=== PATIENT | female | born 1960 | race Caucasian/White ===

== ENCOUNTER → 2018-10-19 | Outpatient (CLI) | payer OTHER ==
--- NOTE | 2018-10-19 16:06 | Diagnostic Imaging Report ---
INDICATION: Pain in the right knee for two weeks. TIME OF EXAM: 3:54 p.m. FINDINGS: Three views of the right knee were obtained. Alignment is normal. Joint spaces are well maintained. Articular surfaces are smooth. No fracture, dislocation, or effusion is seen. IMPRESSION: No acute bony abnormality is detected. Dictated by: Dictated on workstation # [id number]
--- NOTE | 2018-10-19 16:07 | Diagnostic Imaging Report ---
INDICATION: Bilateral hand pain. TIME OF EXAMINATION: 3:56 PM. TECHNIQUE: Multiple views of the bilateral hands were obtained. FINDINGS: The carpus and metacarpals appear intact. The MCP joints are intact. There are mild interphalangeal joint degenerative changes bilaterally. No osseous erosive changes are seen. There are no fractures. The soft tissues are unremarkable. IMPRESSION: Mild degenerative changes but no acute bony abnormality is detected. Dictated by: Dictated on workstation # [id number]
== END ==
LOC: RAD FS 15:47
PROVIDERS: ATTEND Family Medicine
DX: M19.041 Primary osteoarthritis, right hand (principal); M19.042 Primary osteoarthritis, left hand; M25.561 Pain in right knee
CPT/HCPCS: 73562

== ENCOUNTER 2019-06-17 15:43 | Emergency (ER) | payer BC, OTHER ==
[~2019-06-17] VITALS: Ht 172.7 cm; Wt 82.9 kg
--- NOTE | 2019-06-17 15:54 | ED Chest Pain ---
General Stated Complaint: CHEST PAIN Source: patient, EMS Exam Limitations: no limitations (CALOS CAIN DO) History of Present Illness Date Seen by Provider: Jun 17, 2019 Time Seen by Provider: 15:45 Initial Comments The patient is a pleasant 59-year-old female who presents via EMS for evaluation of chest pain or shortness of breath. She states that she has been having some on and off pain over the last 1-2 days which has been in the substernal region radiating to the right side of her neck and both shoulders. She had a heart attack about a year ago and had a cardiac stent placed. This was performed in [place]. She states that her PCP is Dr. Powell. She denies nausea or vomiting, diaphoresis, productive cough, hemoptysis, back pain, abdominal pain, fevers or chills, palpitations, or syncope. She is alert and oriented 4, calm, and appears to be in no distress. She took a baby aspirin this morning as she always does and was given additional aspirin at the urgent care where she went before EMS was called. She is pain-free upon arrival. Timing/Duration: 1-2 days Severity/Quality: moderate Location: substernal Radiation: neck (right), shoulders (both) Activities at Onset: none Prior CP/Workup: heart attack (with stent) ASA po FIRE EATER: Yes NTG SL FIRE EATER: No Associated Symptoms: dizziness (CALOS CAIN DO) Allergies and Home Medications Allergies Coded Allergies: latex (Verified Allergy, Unknown, 06/17/19) Home Medications Meclizine HCl 25 Mg Tablet, 25 MG PO Q8H PRN for DIZZINESS Prescribed by: CHRISTELLE AUGUSTIN on 06/17/19 2017 Patient Home Medication List Home Medication List Reviewed: Yes (CALOS CAIN DO) Review of Systems Review of Systems Constitutional: dizziness EENTM: No Symptoms Reported Respiratory: Shortness of Air Cardiovascular: Chest Pain Gastrointestinal: No Symptoms Reported Genitourinary: No Symptoms Reported Musculoskeletal: no symptoms reported Skin: no symptoms reported Psychiatric/Neurological: No Symptoms Reported Endocrine: No Symptoms Reported Hematologic/Lymphatic: No Symptoms Reported (CALOS CAIN DO) All Other Systems Reviewed Negative Unless Noted: Yes (CALOS CAIN DO) Past Viximxa-Sqdwcn-Nuhvim Hx Past Med/Social Hx: Reviewed Nursing Past Med/Soc Hx (CALOS CAIN DO) Physical Exam Vital Signs Vital Signs - First Documented (CHRISTELLE AUGUSTIN MD) Vital Signs Capillary Refill : (CALOS CAIN DO) Height, Weight, BMI Height: '" Weight: lbs. oz. kg; BMI Method: General Appearance: No Apparent Distress, WD/WN HEENT: PERRL/EOMI, TMs Normal Neck: Full Range of Motion, Normal Inspection, Non Tender, Supple Respiratory: Chest Non Tender, Lungs Clear, Normal Breath Sounds, No Accessory Muscle Use, No Respiratory Distress Cardiovascular: Regular Rate, Rhythm, No Edema, No Murmur, Normal Peripheral Pulses Gastrointestinal: Normal Bowel Sounds, Non Tender, Soft Extremity: Normal Capillary Refill, Non Tender, No Calf Tenderness Neurologic/Psychiatric: Alert, Oriented x3, No Motor/Sensory Deficits, Normal Mood/Affect Skin: Normal Color, Warm/Dry (CALOS CAIN DO) Progress/Results/Core Measures Results/Orders Lab Results Laboratory Tests Test 06/17/19 15:47 06/17/19 18:50 Range/Units White Blood Count 7.5 4.3-11.0 10^3/uL Red Blood Count 4.53 4.35-5.85 10^6/uL Hemoglobin 14.5 11.5-16.0 G/DL Hematocrit 42 35-52 % Mean Corpuscular Volume 92 80-99 FL Mean Corpuscular Hemoglobin 32 25-34 PG Mean Corpuscular Hemoglobin Concent 35 32-36 G/DL Red Cell Distribution Width 13.6 10.0-14.5 % Platelet Count 205 130-400 10^3/uL Mean Platelet Volume 11.6 H 7.4-10.4 FL Neutrophils (%) (Auto) 53 42-75 % Lymphocytes (%) (Auto) 38 12-44 % Monocytes (%) (Auto) 5 0-12 % Eosinophils (%) (Auto) 3 0-10 % Basophils (%) (Auto) 1 0-10 % Neutrophils # (Auto) 4.0 1.8-7.8 X 10^3 Lymphocytes # (Auto) 2.8 1.0-4.0 X 10^3 Monocytes # (Auto) 0.4 0.0-1.0 X 10^3 Eosinophils # (Auto) 0.2 0.0-0.3 10^3/uL Basophils # (Auto) 0.1 0.0-0.1 10^3/uL Prothrombin Time 13.3 12.2-14.7 SEC INR Comment 1.0 0.8-1.4 Activated Partial Thromboplast Time 28 24-35 SEC Sodium Level 143 135-145 MMOL/L Potassium Level 3.8 3.6-5.0 MMOL/L Chloride Level 107 98-107 MMOL/L Carbon Dioxide Level 23 21-32 MMOL/L Anion Gap 13 5-14 MMOL/L Blood Urea Nitrogen 12 7-18 MG/DL Creatinine 0.64 0.60-1.30 MG/DL Estimat Glomerular Filtration Rate > 60 BUN/Creatinine Ratio 19 Glucose Level 123 H 70-105 MG/DL Calcium Level 9.5 8.5-10.1 MG/DL Corrected Calcium 9.3 8.5-10.1 MG/DL Total Bilirubin 0.4 0.1-1.0 MG/DL Aspartate Amino Transf (AST/SGOT) 17 5-34 U/L Alanine Aminotransferase (ALT/SGPT) 23 0-55 U/L Alkaline Phosphatase 104 40-136 U/L Troponin I < 0.30 < 0.30 <0.30 NG/ML Pro-B-Type Natriuretic Peptide 60.8 <75.0 PG/ML Total Protein 7.0 6.4-8.2 GM/DL Albumin 4.2 3.2-4.5 GM/DL Lipase 22 8-78 U/L (CHRISTELLE AUGUSTIN MD) My Orders Orders - CHRISTELLE AUGUSTIN MD Meclizine Tablet (Antivert Tablet) (06/17/19 20:13) (CHRISTELLE AUGUSTIN MD) Medications Given in ED Current Medications Medications Dose Ordered Sig/Anh Route Start Time Stop Time Status Last Admin Dose Admin Iohexol 125 ml ONCE ONCE IV 06/17/19 16:45 06/17/19 16:46 DC 06/17/19 17:06 125 ML Sodium Chloride 10 ml NEEDED PRN IV 06/17/19 16:45 06/17/19 20:24 DC 06/17/19 17:06 10 ML Sodium Chloride 100 ml ONCE ONCE IV 06/17/19 16:45 06/17/19 16:46 DC 06/17/19 17:06 80 ML (CHRISTELLE AUGUSTIN MD) Vital Signs/I&O 06/17/19 06/17/1920 15:43 15:43 20:22 Temp 36.7 Pulse 62 63 Resp 20 16 B/P (MAP) 141/90 (107) 131/63 Pulse Ox 97 94 O2 Delivery Room Air Room Air Room Air (CHRISTELLE AUGUSTIN MD) Progress Progress Note : Progress Note @1800 - Pt care transferred from Dr. Cain to Dr. Augustin at this time. Awaiting second troponin. (CALOS CAIN DO) Progress Note #1: Progress Note I assumed care of the patient from Dr. Cain at shift change. Pt had normal tests so far and negative cardiac enzymes, negative CTA chest, and no acute finding to explain her dizziness and intermittent chest pain symptoms. She has had an upper respiratory infection with cough and cold symptoms. She has dizziness still but feels it is better since being here in the ED. Waiting on repeat troponin which is due to be drawn at 1845. Progress Note #2: Progress Note Repeat troponin is still <0.3. Will try Meclizine for her dizziness and have her follow up with clinic. No acute signs of WI, Pulmonary embolism or pneumonia, heart failure or mass. Counseled pt that the symptoms may be due to her URI but if she has continued symptoms and the meclizine is not helping then check with clinic for further concerns. (CHRISTELLE AUGUSTIN MD) Initial ECG Impression Date: Jun 17, 2019 Initial ECG Impression Time: 15:51 Comment @1551 - Normal sinus rhythm, rate of 64, and normal axis, no acute ischemic findings noted, no STEMI, reviewed and interpreted by myself (CALOS CAIN DO) Diagnostic Imaging Comments [facility], [place] NAME: ABBIE BUTTS [facility] REC#: [id number] PT STATUS: REG ER : 1960 PHYSICIAN: CALOS CAIN DO ADMIT DATE: 06/17/19/ER FS Draft Date of Exam:06/17/19 CHEST 1 VIEW AP/PA ONLY INDICATION: Chest pain. TECHNIQUE: Frontal chest obtained at 3:54 p.m. FINDINGS: Heart and mediastinal silhouette are normal in appearance. The lungs are clear. There is no pneumothorax or pleural fluid. IMPRESSION: Negative chest. Dictated on workstation # [id number] Dict: 06/17/19 1631 Trans: 06/17/19 1633 AS6 [id number] Interpreted by: ALEXANDRA BOYER MD Electronically signed by: (CALOS CAIN DO) Diagonstic Imaging: CT Plain Films/CT/US/NM/MRI: chest Comments NAME: ABBIE BUTTS [facility] REC#: [id number] PT STATUS: REG ER : 1960 PHYSICIAN: CALOS CAIN DO ADMIT DATE: 06/17/19/ER FS Draft Date of Exam:06/17/19 CT ANGIO CHEST W PROCEDURE: CT angiography of the chest with contrast. TECHNIQUE: Multiple contiguous axial images were obtained through the chest after uneventful bolus administration of intravenous contrast. 3D reconstructed CTA MIP acquisitions were also performed. Auto Exposure Controls were utilized during the CT exam to meet ALARA standards for radiation dose reduction. INDICATION: Intermittent sharp stabbing chest pain and shortness of breath. Symptoms have been present over the past week along with cough and shortness of breath. COMPARISON: None. FINDINGS: Pulmonary arteries demonstrate no significant filling defect to suggest pulmonary embolism. The heart size is unremarkable. Thoracic aorta normal in contour. Thyroid gland is enlarged. There is prominent mediastinal lymph nodes, AP window. Large lymph node at 18 x 9 mm. Emphysematous changes about the lung calero. No consolidating infiltrate. Likely areas of scarring about both lung bases. Calcified granuloma in the left upper lobe. No significant pleural effusion. Stomach is mildly distended with retained gastric contents. There is partial visualization of low-density foci at the margins of the right lobe of the liver posteriorly. While nonspecific, could be reflective of cysts even perhaps off the kidney but cannot be defined. Slight thickening of the left adrenal gland. Mildly advanced degenerative changes of the thoracic spine. IMPRESSION: 1. No CTA evidence for pulmonary embolism or otherwise acute abnormality of the chest. 2. Borderline prominent mediastinal lymph nodes. Clinical correlation is recommended. Consideration for follow-up imaging evaluation would be recommended. 3. Suggested thyromegaly. Dictated on workstation # [id number] Dict: 06/17/19 1727 Trans: 06/17/19 1739 AS6 [id number] Interpreted by: JOE SANTORO DO Electronically signed by: (CHRISTELLE AUGUSTIN MD) Departure Impression Primary Impression: Chest pain Qualified Codes: R07.9 - Chest pain, unspecified Additional Impressions: Dizziness Upper respiratory infection with cough and congestion Disposition: HOME, SELF-CARE Condition: Stable Departure-Patient Inst. Decision time for Depature: 20:15 (CHRISTELLE AUGUSTIN MD) Referrals: RATNA POWELL MD (PCP/Family) Primary Care Physician Patient Instructions: Chest Pain That Is Not Caused by the Heart (DC), Vertigo (a Type of Dizziness) (DC), Viral Upper Respiratory Infection, Adult (DC) Add. Discharge Instructions: Stay well hydrated and get plenty of rest. Try the meclizine for dizziness Check back with clinic for continued concerns and symptoms. Scripts Meclizine HCl (Meclizine HCl) 25 Mg Tablet 25 MG PO Q8H PRN for DIZZINESS for 7 Days, #21 TAB 0 Refills Prov: CHRISTELLE AUGUSTIN MD 06/17/19 CALOS CAIN DO Jun 17, 2019 15:54 CHRISTELLE AUGUSTIN MD Jun 17, 2019 20:17
[2019-06-17 16:18] LABS: BASOPHILS # (AUTO) 0.1 10^3/uL (0.0-0.1); BASOPHILS % (AUTO) 1 % (0-10); EOSINOPHILS # (AUTO) 0.2 10^3/uL (0.0-0.3); EOSINOPHILS % (AUTO) 3 % (0-10); HEMATOCRIT 42 % (35-52); HEMOGLOBIN 14.5 G/DL (11.5-16.0); LYMPHOCYTES # (AUTO) 2.8 X 10^3 (1.0-4.0); LYMPHOCYTES % (AUTO) 38 % (12-44); MEAN CORPUSCULAR HEMOGLOBIN 32 PG (25-34); MEAN CORPUSCULAR HGB CONC 35 G/DL (32-36); MEAN CORPUSCULAR VOLUME 92 FL (80-99); MEAN PLATELET VOLUME 11.6 FL (7.4-10.4); MONOCYTES # (AUTO) 0.4 X 10^3 (0.0-1.0); MONOCYTES % (AUTO) 5 % (0-12); NEUTROPHILS % (AUTO) 53 % (42-75); PLATELET COUNT 205 10^3/uL (130-400); RED CELL DISTRIBUTION WIDTH 13.6 % (10.0-14.5); WHITE BLOOD COUNT 7.5 10^3/uL (4.3-11.0)
[2019-06-17 16:20] LABS: ALANINE AMINOTRANSFERASE 23 U/L (0-55); ALBUMIN 4.2 GM/DL (3.2-4.5); ALKALINE PHOSPHATASE 104 U/L (40-136); BILIRUBIN,TOTAL 0.4 MG/DL (0.1-1.0); BUN/CREATININE RATIO 19; CALCIUM 9.5 MG/DL (8.5-10.1); CARBON DIOXIDE 23 MMOL/L (21-32); CHLORIDE 107 MMOL/L (98-107); CREATININE SERUM 0.64 MG/DL (0.60-1.30); GFR ESTIMATED > 60; GLUCOSE 123 MG/DL (70-105); LIPASE 22 U/L (8-78); POTASSIUM 3.8 MMOL/L (3.6-5.0); SODIUM 143 MMOL/L (135-145)
[2019-06-17 16:24] LABS: PROTHROMBIN TIME PATIENT 13.3 SEC (12.2-14.7)
--- NOTE | 2019-06-17 16:33 | Diagnostic Imaging Report ---
INDICATION: Chest pain. TECHNIQUE: Frontal chest obtained at 3:54 p.m. FINDINGS: Heart and mediastinal silhouette are normal in appearance. The lungs are clear. There is no pneumothorax or pleural fluid. IMPRESSION: Negative chest. Dictated by: Dictated on workstation # [id number]
[2019-06-17] MEDS ORDERED: HOLD METFORMIN - RECEIVED CONTRAST 20 ML VIAL IV SCH (16:45)
[2019-06-17] MEDS ORDERED: IOHEXOL 350 MG/ML 150 ML (OMNIPAQUE 350) VIAL IV ONE (16:45)
[2019-06-17] MEDS ORDERED: NS 100 ML (IVPB) BAG IV ONE (16:45)
[2019-06-17] MEDS ORDERED: CATHETER FLUSH 10 ML SYR IV PRN (16:45)
--- NOTE | 2019-06-17 17:40 | Diagnostic Imaging Report ---
PROCEDURE: CT angiography of the chest with contrast. TECHNIQUE: Multiple contiguous axial images were obtained through the chest after uneventful bolus administration of intravenous contrast. 3D reconstructed CTA MIP acquisitions were also performed. Auto Exposure Controls were utilized during the CT exam to meet ALARA standards for radiation dose reduction. INDICATION: Intermittent sharp stabbing chest pain and shortness of breath. Symptoms have been present over the past week along with cough and shortness of breath. COMPARISON: None. FINDINGS: Pulmonary arteries demonstrate no significant filling defect to suggest pulmonary embolism. The heart size is unremarkable. Thoracic aorta normal in contour. Thyroid gland is enlarged. There is prominent mediastinal lymph nodes, AP window. Large lymph node at 18 x 9 mm. Emphysematous changes about the lung calero. No consolidating infiltrate. Likely areas of scarring about both lung bases. Calcified granuloma in the left upper lobe. No significant pleural effusion. Stomach is mildly distended with retained gastric contents. There is partial visualization of low-density foci at the margins of the right lobe of the liver posteriorly. While nonspecific, could be reflective of cysts even perhaps off the kidney but cannot be defined. Slight thickening of the left adrenal gland. Mildly advanced degenerative changes of the thoracic spine. IMPRESSION: 1. No CTA evidence for pulmonary embolism or otherwise acute abnormality of the chest. 2. Borderline prominent mediastinal lymph nodes. Clinical correlation is recommended. Consideration for follow-up imaging evaluation would be recommended. 3. Suggested thyromegaly. Dictated by: Dictated on workstation # [id number]
[2019-06-17] MEDS ORDERED: MECLIZINE 25 MG (ANTIVERT) TAB PO STA (20:13)
[2019-06-17] MEDS ORDERED: MECL-106 PO (20:17)
[2019-06-17 20:22] VITALS: BP 131/63
== END 2019-06-17 20:24 | disposition home or self-care (01) ==
LOC: EDUNIT# 15:43 → ER FS 15:45
DX: J06.9 Acute upper respiratory infection, unspecified (principal); R07.2 Precordial pain; I25.2 Old myocardial infarction; Z95.5 Presence of coronary angioplasty implant and graft; Z79.82 Long term (current) use of aspirin; Z91.040 Latex allergy status
CPT/HCPCS: 36415; 71045; 71275; 80053; 83690; 83880; 84484; 85025; 85610; 85730; 93005; 93041

== ENCOUNTER → 2020-10-31 | Outpatient (CLI) | payer BC ==
[~2020-10-31] VITALS: Ht 172 cm; Wt 83.0 kg
[~2020-10-31] MED LIST: CATHETER FLUSH 10 ML SYR IV PRN; MECL-149 PO
[2020-10-31 12:51] VITALS: BP 120/67
--- NOTE | 2020-10-31 14:41 | Cardiology Stress Test Report ---
Stress Test Report Date of Procedure/Referring: Date of Procedure: October 31, 2020 PCP Alida Fountain MD Admitting Physician Enrique Membreno MD Indications: And he has chestCP Baseline Heart Rate: 53 Baseline Blood Pressure: Blood Pressure Systolic: 120 Blood Pressure Diastolic: 67 Vital Signs Date Time Temp Pulse Resp B/P (MAP) Pulse Ox O2 Delivery O2 Flow Rate FiO2 10/31/20 12:51 69 120/67 (84) 97 Room Air Baseline Vital Signs Vital Signs Date Time Temp Pulse Resp B/P (MAP) Pulse Ox O2 Delivery O2 Flow Rate FiO2 10/31/20 12:51 69 120/67 (84) 97 Room Air Baseline EKG: Baseline EKG: NSR Summary: After explaining the procedure and details to the patient, she signed the consent and was brought to the stress nuclear laboratory. Patient exercised on standard Jared protocol, EKG, heart rate and blood pressure were monitored continuously, resting and stress doses of radio tracer were injected, imaging was acquired and reviewed in the short axis, horizontal long axis and vertical long axis views Patient was able to exercise for a total of 3.30 minutes on Jared protocol, METs 5.2 Maximum heart rate 150 Maximum blood pressure 194/123 Stress EKG, Minimal nondiagnostic changes Recovery EKG, Return to baseline TID: 1.06 SSS: 9 SDS: 8 EF: 71 Conclusion: 1. Poor exercise tolerance for a total of 3 minutes 30 seconds on standard Jared protocol 5.2 METS achieving 94% of maximal expected heart rate 2. Nondiagnostic EKG changes with [address] depression in lead II, 3, aVF return to baseline during recovery 3. Severe hypertensive response to exercise with peak blood pressure 194/123 return to baseline during recovery 4. Breast attenuation with reversible ischemia involving the whole anterior wall and anterolateral wall 5. Normal left ventricular size, EF 71% ALIDA FOUNTAIN MD October 31, 2020 14:41
== END ==
LOC: CARD 10:45
PROVIDERS: ATTEND Internal Medicine Cardiovascular Disease
DX: R07.9 Chest pain, unspecified (principal); I10 Essential (primary) hypertension
CPT/HCPCS: 78452; 93017; 93306; A9502

== ENCOUNTER 2020-11-28 10:00 | Day surgery (SDC) | payer SELFPAY ==
[~2020-11-28] VITALS: Ht 172 cm; Wt 82.0 kg
[2020-11-28] VITALS (13 sets, daily range): BP systolic 105–139; BP diastolic 57–105
[2020-11-28 08:55] LABS: HEMATOCRIT 44 % (35-52); HEMOGLOBIN 14.7 g/dL (11.5-16.0); MEAN CORPUSCULAR HEMOGLOBIN 32 pg (25-34); MEAN CORPUSCULAR HGB CONC 33 g/dL (32-36); MEAN CORPUSCULAR VOLUME 96 fL (80-99); MEAN PLATELET VOLUME 11.6 fL (9.0-12.2); PLATELET COUNT 192 10^3/uL (130-400); WHITE BLOOD COUNT 9.5 10^3/uL (4.3-11.0)
[2020-11-28 08:57] LABS: BILIRUBIN,URINE NEGATIVE (NEGATIVE); CLARITY,URINE CLOUDY; COLOR,URINE YELLOW; GLUCOSE, URINE (UA) NEGATIVE (NEGATIVE); KETONES,URINE NEGATIVE (NEGATIVE); LEUKOCYTE ESTERASE ,URINE NEGATIVE (NEGATIVE); NITRITE,URINE NEGATIVE (NEGATIVE); PROTEIN,URINE NEGATIVE (NEGATIVE)
--- NOTE | 2020-11-28 09:03 | Diagnostic Imaging Report ---
Indication: Pre-heart catheterization. Patient has shortness of breath and chest pain as well as hypertension. Time of exam 8:41 AM Correlation is made with prior chest from 06/17/2019. The heart size is normal. The pulmonary vascularity is unremarkable. The lungs are clear. No infiltrate, effusion or pneumothorax is detected. Impression: No acute cardiopulmonary process is detected. Dictated by: Dictated on workstation # [id number]
[2020-11-28 09:16] LABS: INR 0.9 (0.8-1.4); PROTHROMBIN TIME PATIENT 12.8 SEC (12.2-14.7)
[2020-11-28 09:17] LABS: ALANINE AMINOTRANSFERASE 16 U/L (0-55); ALBUMIN 4.1 GM/DL (3.2-4.5); ALKALINE PHOSPHATASE 79 U/L (40-136); BILIRUBIN,TOTAL 0.4 MG/DL (0.1-1.0); BUN/CREATININE RATIO 17; CALCIUM 9.3 MG/DL (8.5-10.1); CARBON DIOXIDE 28 MMOL/L (21-32); CHLORIDE 106 MMOL/L (98-107); CHOLESTEROL 147 MG/DL (< 200); CREATININE SERUM 0.77 MG/DL (0.60-1.30); GFR ESTIMATED > 60; GLUCOSE 100 MG/DL (70-105); HDL CHOLESTEROL 47 MG/DL (40-60); POTASSIUM 3.6 MMOL/L (3.6-5.0); SODIUM 143 MMOL/L (135-145); TOTAL PROTEIN 7.2 GM/DL (6.4-8.2); TRIGLYCERIDES 116 MG/DL (<150); VLDL CHOLESTEROL 23 MG/DL (5-40)
[2020-11-28 09:18] LABS: BACTERIA,URINE LARGE /HPF; SQUAMOUS EPITHELIAL CELL,UR 25-50 /HPF
[~2020-11-28 10:00] MED LIST changes: +ASPI-999 PO; +ATOR10TA66 PO; -CATHETER FLUSH 10 ML SYR IV PRN; +CHOL400C9 PO; +CLOP75TA28 PO; +CYCL10TA9 PO; +EZET10TA17 PO; +IBUP-1773 PO; +NITR1PAT83 TD; +NS IV 1000 ML 1,000 ML IV SCH; +PROG100C11 PO; +RED600CA2 PO; +SERT-414 PO; +TURM538C PO; +VITA1TAB33 PO
[2020-11-28] MEDS ORDERED: fentaNYL INJ 100 MCG/2 ML AMP ONE (10:10)
[2020-11-28] MEDS ORDERED: MIDAZOLAM 5 MG/5 ML (VERSED) VIAL ONE (10:10)
[2020-11-28] MEDS ORDERED: HEParin 1000 UNIT/ML (10ML VIAL) FOR BOLUS ONE (10:51)
[2020-11-28] MEDS ORDERED: NITRO DRIP 25000 MCG/D5W 250 ML IV ONE (11:01)
[2020-11-28] MEDS ORDERED: ASPIRIN 325 MG (5 GR) TABLET ONE (11:08)
[2020-11-28] MEDS ORDERED: CLOPIDOGREL 300 MG (PLAVIX) TABLET PO ONE (11:08)
--- NOTE | 2020-11-28 11:09 | Conscious Sedation/ASA ---
Conscious Sedation Pre-Proced Time 10:00 ASA Score 3 For ASA 3 and 4: Consider anesthesia and medical clearance. Also, for patients with a history of failed moderate sedation consider anesthesia. Airway Lungs Heart ASA score ASA 1: a normal healthy patient ASA 2: a patient with a mild systemic disease (mid diabetes, controlled hypertension, obesity x ASA 3: a patient with a severe systemic disease that limits activity (angina, COPD, prior Myocardial infarction) ASA 4: a patient with an incapacitating disease that is a constant threat to life (CHF, renal failure) ASA 5: a moribund patient not expected to survive 24 hrs. (ruptured aneurysm) ASA 6: a declared brain- patient whose organs are being harvested. For emergent operations, add the letter E after the classification Mallampati Classification Grade 3 Sedation Plan Analgesia, Amnesia, Plan communicated to team members, Discussed options with patient/fam, Discussed risks with patient/fam The patient is an appropriate candidate to undergo the planned procedure, sedation, and anesthesia. The patient immediately re-assessed prior to indication. ALIDA RAMOS MD Nov 28, 2020 11:09 am
[2020-11-28] MEDS ORDERED: MECLIZINE 25 MG (ANTIVERT) TAB PO PRN (11:15)
[2020-11-28] MEDS ORDERED: PATIENT MAY USE OWN MEDS, ALL PO SCH (11:15)
--- NOTE | 2020-11-28 11:16 | Cardiac Cath Report ---
Cardiac Cath Report Physician (s)/Electronic Pagination System Operator (s) Physician ALIDA RAMOS MD Pre-Procedure Diagnosis Pre-Procedure Diagnosis: Coronary artery disease Post-Procedure Note Procedure Start Date: Nov 28, 2020 Name of Procedure: Left heart catheterization Stent to the LAD Findings/Procedure Note PROCEDURE NOTE: 60-year-old lady with history of coronary artery disease, had a stent to the LAD done in the past, had multiple episode of chest pain, abnormal stress test with anterior wall ischemia scheduled for cardiac catheterization possible PTCA. After explaining the procedure to the patient, all pros and cons were explained, all questions were answered. The patient signed the consent and then she was placed on the cardiac catheterization laboratory. Groin was prepped SL fashion local anesthesia was used. Sheath placed in the right femoral artery. Roslyn right and left catheter were used to access the coronary system. Roslyn right was prolapsed to the left ventricular cavity, pressure was measured no left ventriculogram was done, pullback LV to aorta was done. Patient was noted to have severe stenosis in the mid LAD, knowing that she has ischemia in the anterior wall decided to proceed with percutaneous intervention, 5000 units of heparin were given, EBU guide was advanced then BMW wire was advanced and parked distal LAD, primary stenting using Veronica 3 x 12 mm postdilated with noncompliant balloon to 3.5 mm with excellent results At the end of the procedure the sheath was removed. Closure device was deployed FINDINGS: Hemodynamics LV 139/11, end-diastolic pressure of 11 Aorta 126/64 mean of 82 ANATOMY: Left Main is free of obstructive disease Left Anterior Descending has patent proximal stent, severe stenosis at the midportion, successful primary stenting using Veronica 3 x 12 mm postdilated to 3.5 mm with good results Left Circumflex has mild disease nonobstructive disease Right Coronary Artery has mild ectasia proximally with slow flow due to small vessel disease LV Gram was not done, pressure was measured CONCLUSION: 1. Severe stenosis in the mid LAD, successful primary stenting using drug- eluting stents Veronica 3 x 12 mm postdilated to 3.5 mm with excellent results, had an old proximal LAD stent that is patent 2. Mild ectasia in the proximal right coronary artery with slow flow due to small vessel disease nonobstructive disease 3. Normal left ventricular end-diastolic pressure DISCUSSION AND RECOMMENDATION: Continue to maximize medical therapy Anesthesia Type: Conscious Sedation Estimated blood loss (mL): 25 ml Contrast Amount: 70 ml Total Radiation Dose: 453 mGy Post-Procedure Diagnosis Post-operative diagnosis: Chest pain Coronary artery disease Hypertension Hyperlipidemia ALIDA RAMOS MD Nov 28, 2020 11:16 am
[2020-11-28] MEDS: NS IV 1000 ML 1,000 ML IV SCH ×2 (12:05→17:36)
[2020-11-28] MEDS ORDERED: CYCLOBENZAPRINE 10 MG (FLEXERIL) TAB PO PRN (12:45)
[2020-11-28] MEDS ORDERED: ATORVASTATIN 10 MG TABLET PO SCH (21:00)
[2020-11-29 04:02] VITALS: BP 130/57
[2020-11-29 05:02] LABS: HEMATOCRIT 39 % (35-52); MEAN CORPUSCULAR HEMOGLOBIN 32 pg (25-34); MEAN CORPUSCULAR HGB CONC 33 g/dL (32-36); MEAN CORPUSCULAR VOLUME 95 fL (80-99); MEAN PLATELET VOLUME 11.7 fL (9.0-12.2); PLATELET COUNT 165 10^3/uL (130-400); WHITE BLOOD COUNT 7.9 10^3/uL (4.3-11.0)
[2020-11-29 05:18] LABS: BUN/CREATININE RATIO 18; CALCIUM 8.5 MG/DL (8.5-10.1); CARBON DIOXIDE 25 MMOL/L (21-32); CHLORIDE 108 MMOL/L (98-107); CREATININE SERUM 0.65 MG/DL (0.60-1.30); GFR ESTIMATED > 60; GLUCOSE 94 MG/DL (70-105); POTASSIUM 3.9 MMOL/L (3.6-5.0); SODIUM 141 MMOL/L (135-145)
--- NOTE | 2020-11-29 06:50 | Discharge Inst-Post CATH ---
Discharge Inst-CATH/EP Problems Reviewed?: Yes Post Cardiac Cath/EP D/C Inst Follow Up/Plan Appointment with Dr Fountain in 2-4 weeks <b>CARDIAC CATH/EP PROCEDURE DISCHARGE INSTRUCTIONS</b> ACTIVITY * Go Home directly and rest. * Limit activity of the leg (or wrist if it was used) for 7 days including aerobics, swimming, jogging, bicycling, etc. * Restrict stair-climbing for 7 days if possible, if not, climb up with your non-cath leg, then bring together on the same step. * Avoid lifting, pushing, pulling or excessive movement of the affected extremity for 7 days. * Customary sexual activity may be resumed after 2 days-use caution not to use a position that strains or causes pain to the affected extremity. * No driving for 24 hours. * NO SMOKING. * Avoid straining for bowel movements for 7 days. * Gentle walking on level ground is allowed. * Returning to work will depend on the type of procedure and the results. Your doctor will discuss this with you. CALL YOUR DOCTOR FOR ANY OF THE FOLLOWING: *If bleeding from the puncture site occurs- Apply gentle pressure to site with clean cloth and call your doctor or EMS. * If a knot or lump forms under the skin, increases in size, or causes pain. * If bruising appears to be worsening or moving further down your leg instead of disappearing. * Temperature above 101 F. CARE OF YOUR GROIN INCISION; * Bruising or purple discoloration of the skin near the puncture site is common. * You may shower only, no bathtub bathing for 5 days. Be careful to avoid slipping as your leg may feel stiff. * If a closure device was used on your femoral artery, please see the attached guide regarding care of the device and your leg. * Leave dressing on FOR 24 hours. CARE OF YOUR WRIST INCISION; * Bruising or purple discoloration of the skin near the puncture site is common. * You may shower. * DO NOT submerge wrist. * Leave dressing on FOR 24 hours. ALIDA FOUNTAIN MD Nov 29, 2020 06:50
[2020-11-29] MEDS ORDERED: MULTIVIT W/MINERALS TAB (THERAGRAN M) PO SCH (07:00)
[2020-11-29 07:58] VITALS: BP 112/76
[2020-11-29] MEDS ORDERED: eZETimibe 10 MG (ZETIA) TABLET PO SCH (09:00)
[2020-11-29] MEDS ORDERED: CLOPIDOGREL 75 MG (PLAVIX) TABLET PO SCH (09:00)
[2020-11-29] MEDS ORDERED: ASPIRIN E.C. 81 MG (ECOTRIN) TAB PO SCH (09:00)
[2020-11-29] MEDS ORDERED: SERTRALINE 100 MG (ZOLOFT) TAB PO SCH (09:00)
--- NOTE | 2020-11-29 10:42 | Cardiology Progress Note ---
Subjective Date Seen by Provider: Nov 29, 2020 Time Seen by Provider: 08:00 Subjective/Events-last exam Patient was seen at bedside, feeling better. No new complaint. Groin is healing well Review of Systems General: No Chills, No Night Sweats, No Fatigue, No Malaise, No Appetite, No Other HEENT: No Head Aches, No Visual Changes, No Eye Pain, No Ear Pain, No Dyspha kathleen, No Sinus Congestion, No Post Nasal Drip, No Sore Throat, No Other Pulmonary: No Dyspnea, No Cough, No Pleuritic Chest Pain, No Other Cardiovascular: No: Chest Pain, Palpitations, Orthopnea, Paroxysmal Noc. Dyspnea, Edema, Lt Headedness, Other Objective-Cardiology Exam Last Set of Vital Signs Vital Signs 11/29/20 11/29/20 04:02 07:58 Temp 36.4 Pulse 63 Resp 18 B/P (MAP) 112/76 (88) Pulse Ox 97 O2 Delivery Room Air Capillary Refill : Less Than 3 Seconds I&O Intake and Output 11/28/20 23:59 Intake Total 1240 ml Balance 1240 ml Intake Oral 240 ml IV Total 1000 ml # Voids 3 General: Alert, Oriented X3, Cooperative HEENT: Atraumatic, PERRLA Neck: Supple, No JVD, No Thyromegaly Lungs: Clear to Auscultation, Normal Air Movement Heart: Regular Rate, Normal S1, Normal S2, No Murmurs Abdomen: Normal Bowel Sounds, Soft, No Tenderness, No Hepatosplenomegaly, No Masses Extremities: No Clubbing, No Cyanosis, No Edema, Normal Pulses, No Tenderness/Swelling Skin: No Rashes, No Breakdown, No Significant Lesion Neuro: Normal Gait, Normal Speech, Strength at 5/5 X4 Ext, Normal Tone, Se nsation Intact Psych/Mental Status: Mental Status NL, Mood NL Results Lab Laboratory Tests 11/29/20 04:13 A/P-Cardiology Admission Diagnosis Coronary artery disease Hypertension Hyperlipidemia Assessment/Plan Coronary artery disease, status post stenting to the LAD, recovering well Hypertension, good control, continue current medication Hyperlipidemia, monitor lipids We discussed compliance with medication, educated about medication, will arrange for follow-up as an outpatient ALIDA RAMOS MD Nov 29, 2020 10:42
[2020-11-29 10:59] VITALS: BP 112/76
== END 2020-11-29 09:30 ==
LOC: CATH 10:00 → CSD 12:14 → CATH 11-29 09:30
PROVIDERS: ATTEND Internal Medicine Cardiovascular Disease
DX: R07.89 Other chest pain (principal); I25.10 Atherosclerotic heart disease of native coronary artery without angina pectoris; I10 Essential (primary) hypertension; I49.1 Atrial premature depolarization; F17.210 Nicotine dependence, cigarettes, uncomplicated; I25.2 Old myocardial infarction; E78.00 Pure hypercholesterolemia, unspecified; F32.9 Major depressive disorder, single episode, unspecified; M19.90 Unspecified osteoarthritis, unspecified site; R56.9 Unspecified convulsions; I65.23 Occlusion and stenosis of bilateral carotid arteries; E78.2 Mixed hyperlipidemia; Z95.5 Presence of coronary angioplasty implant and graft; Z79.82 Long term (current) use of aspirin; Z79.02 Long term (current) use of antithrombotics/antiplatelets; Z79.899 Other long term (current) drug therapy
CPT/HCPCS: 71045; 80048; 80053; 80061; 81000; 85027 ×2; 85610; 85730; 87081; 93005; 93458; C1725; C1760; C1769; C1874; C1887; C1894; C9600; 36415

== ENCOUNTER → 2021-08-22 | Outpatient (CLI) | payer OTHER ==
[~2021-08-22] MED LIST changes: +CATHETER FLUSH 10 ML SYR IVP PRN; +CYCL10TA25 PO; -CYCL10TA9 PO; -NS IV 1000 ML 1,000 ML IV SCH
--- NOTE | 2021-08-22 14:51 | Diagnostic Imaging Report ---
INDICATION: Right flank pain. Patient was given 5.2 mCi technetium 99m Choletec intravenously and imaging over the abdomen was performed. After 60 minutes patient ingested Ensure and a gallbladder ejection fraction was calculated. Homogeneous uptake of activity by the liver is noted with prompt excretion of activity into the gallbladder and common duct. There is normal passage of activity into the small bowel. Gallbladder ejection fraction is normal at 62%. IMPRESSION: Normal HIDA scan and gallbladder ejection fraction. Dictated by: Dictated on workstation # [id number]
== END ==
LOC: CARD 12:00
PROVIDERS: ATTEND Urology
DX: R10.9 Unspecified abdominal pain (principal)
CPT/HCPCS: 78227

== ENCOUNTER 2021-12-03 14:08 | Emergency (ER) | payer OTHER ==
[~2021-12-03] VITALS: Ht 172.7 cm; Wt 82.1 kg
[~2021-12-03 14:08] MED LIST changes: -CATHETER FLUSH 10 ML SYR IVP PRN
[2021-12-03] MEDS ORDERED: ONDANSETRON 4 MG/2 ML (SDV) Z0FRAN IVP ONE ×2 (14:45→16:15)
[2021-12-03] MEDS ORDERED: NS IV 1000 ML 1,000 ML IV SCH (14:45)
[2021-12-03 15:15] LABS: BASOPHILS % (AUTO) 1 % (0-10); EOSINOPHILS # (AUTO) 0.2 10^3/uL (0.0-0.3); EOSINOPHILS % (AUTO) 3 % (0-10); HEMATOCRIT 47 % (35-52); LYMPHOCYTES # (AUTO) 1.8 10^3/uL (1.0-4.0); LYMPHOCYTES % (AUTO) 29 % (12-44); MEAN CORPUSCULAR HEMOGLOBIN 31 pg (25-34); MEAN CORPUSCULAR HGB CONC 34 g/dL (32-36); MEAN CORPUSCULAR VOLUME 89 fL (80-99); MEAN PLATELET VOLUME 11.3 fL (9.0-12.2); MONOCYTES # (AUTO) 0.5 10^3/uL (0.0-1.0); MONOCYTES % (AUTO) 8 % (0-12); NEUTROPHILS # (AUTO) 3.7 10^3/uL (1.8-7.8); NEUTROPHILS % (AUTO) 59 % (42-75); PLATELET COUNT 191 10^3/uL (130-400); WHITE BLOOD COUNT 6.3 10^3/uL (4.3-11.0)
[2021-12-03 15:17] LABS: BILIRUBIN,URINE NEGATIVE (NEGATIVE); CLARITY,URINE SL CLOUDY; COLOR,URINE YELLOW; GLUCOSE, URINE (UA) NEGATIVE (NEGATIVE); KETONES,URINE NEGATIVE (NEGATIVE); LEUKOCYTE ESTERASE ,URINE NEGATIVE (NEGATIVE); NITRITE,URINE NEGATIVE (NEGATIVE); PH,URINE 6.5 (5-9); PROTEIN,URINE NEGATIVE (NEGATIVE)
--- NOTE | 2021-12-03 15:37 | ED Abdominal Pain ---
General Chief Complaint: Abdominal/GI Problems Stated Complaint: DIARRHEA/VOMITING, EPIGASTRIC PAIN Nursing Triage Note: PT AMBULATE TO ROOM [facility] WITH C/O RIGHT ARM/SHOULDER PAIN, N/V/D X6 MONTHS THAT HAS BEEN WORSE X3 DAYS. PT REPORTS SEEING MULTIPLE PROVIDERS FOR THIS C/O AND THAT SHE HAS A GI APPT ON 12/09/21. Source of Information: Patient Exam Limitations: No Limitations History of Present Illness Date Seen by Provider: Dec 03, 2021 Time Seen by Provider: 14:30 Initial Comments Patient is a 58-year-old female presents with epigastric/right upper quadrant p ain starting 3 days ago. Patient has had similar symptoms over the past several months. She has had extensive outpatient work-up including EGD colonoscopy, CT scan, gallbladder ultrasound and HIDA scan which were nondiagnostic. She is awaiting her GI appointment in 6 days. Symptoms are associate with nausea vomiting and watery diarrhea. Patient last ate yesterday and last drink this morning. She last vomited prior to ED arrival. She denies fever chills or sweats. She denies flank pain. Timing/Duration: 3-4 Days Severity/Quality: Other Location: Other Radiation: Other Activities at Onset: Other Modifying Factors: Improves With Other Associated Symptoms: Other Allergies and Home Medications Allergies Coded Allergies: latex (Verified Allergy, Unknown, 06/17/19) Patient Home Medication List Home Medication List Reviewed: Yes Aspirin (Aspirin) 81 Mg Tab.chew, 81 MG PO DAILY, (Reported) Entered as Reported by: KAYLI LIVE on 11/28/20925 Atorvastatin Calcium (Atorvastatin Calcium) 10 Mg Tablet, 10 MG PO HS, (Reported) Entered as Reported by: KAYLI LIVE on 11/28/20925 B Complex with Vitamin C (Super B Complex-Vitamin C) 1 Each Tablet, 1 EACH PO DAILY, (Reported) Entered as Reported by: KAYLI LIVE on 11/28/20925 Cholecalciferol (Vitamin D3) (Vitamin D3) 10 Mcg Capsule, 10 MCG PO DAILY, (Reported) Entered as Reported by: KAYLI LIVE on 11/28/20925 Clopidogrel Bisulfate (Clopidogrel) 75 Mg Tablet, 75 MG PO DAILY, (Reported) Entered as Reported by: KAYLI LIVE on 11/28/20925 Cyclobenzaprine HCl (Cyclobenzaprine HCl) 10 Mg Tablet, 10 MG PO PRN, (Reported) Entered as Reported by: KAYLI LIVE on 11/28/20925 Ezetimibe (Zetia) 10 Mg Tablet, 10 MG PO DAILY, (Reported) Entered as Reported by: KAYLI LIVE on 11/28/20925 Meclizine HCl (Meclizine HCl) 25 Mg Tablet, 25 MG PO Q8H PRN for DIZZINESS Prescribed by: CHRISTELLE AUGUSTIN on 06/17/192016 Nitroglycerin (Nitro-Dur 0.4 MG/HR) 1 Each Patch.td24, 1 EACH TD DAILY, (Reported) Entered as Reported by: KAYLI LIVE on 11/28/20925 Progesterone,Micronized (Progesterone) 100 Mg Capsule, 100 MG PO DAILY, (Reported) Entered as Reported by: KAYLI LIVE on 11/28/20925 Red Yeast Rice (Red Yeast Rice) 600 Mg Capsule, 600 MG PO DAILY, (Reported) Entered as Reported by: KAYLI LIVE on 11/28/20925 Sertraline HCl (Sertraline HCl) 100 Mg Tablet, 100 MG PO DAILY, (Reported) Entered as Reported by: KAYLI LIVE on 11/28/20925 Turmeric Root Extract (Turmeric) 538 Mg Capsule, 538 MG PO DAILY, (Reported) Entered as Reported by: KAYLI LIVE on 11/28/20925 Review of Systems Review of Systems Constitutional: see HPI EENTM: See HPI Respiratory: See HPI Cardiovascular: See HPI Gastrointestinal: See HPI Genitourinary: See HPI Musculoskeletal: see HPI Skin: see HPI Psychiatric/Neurological: See HPI Endocrine: See HPI Hematologic/Lymphatic: See HPI All Other Systems Reviewed Negative Unless Noted: Yes Past Fkehedr-Xkwysd-Rsrlyu Hx Patient Social History Tobacco Use?: Yes Tobacco type used: Cigarettes Smoking Status: Current Everyday Smoker Smokeless Tobacco Frequency: Never a User Use of E-Cig and/or Vaping dev: No Use of E-Cig and/or Vaping Bryn: Never a User Substance use?: No Alcohol Use?: No Pt feels they are or have been: No Immunizations Up To Date COVID19 Vaccine [employer] Rep: MODERNA Seasonal Allergies Seasonal Allergies: No Past Medical History Surgeries: Yes Coronary Stent, Hysterectomy Respiratory: No Cardiac: Yes Hypertension 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 oz. kg; 27.00 BMI Method: General Appearance: WD/WN, no apparent distress HEENT: PERRL/EOMI, normal ENT inspection Neck: non-tender, full range of motion, supple Respiratory: lungs clear Cardiovascular: normal peripheral pulses, regular rate, rhythm Gastrointestinal: non tender, soft Back: no CVA tenderness Neurologic/Psychiatric: oriented x 3 Focused Exam Lactate Level 12/03/21 15:00: Lactic Acid Level 1.47 Lactic Acid Level Laboratory Tests Test 12/03/21 15:00 Lactic Acid Level 1.47 MMOL/L (0.50-2.00) Progress/Results/Core Measures Results/Orders Lab Results Laboratory Tests Test 12/03/21 14:35 12/03/21 15:00 Range/Units Urine Color YELLOW Urine Clarity SL CLOUDY Urine pH 6.5 5-9 Urine Specific [place] 1.015 L 1.016-1.022 Urine Protein NEGATIVE NEGATIVE Urine Glucose (UA) NEGATIVE NEGATIVE Urine Ketones NEGATIVE NEGATIVE Urine Nitrite NEGATIVE NEGATIVE Urine Bilirubin NEGATIVE NEGATIVE Urine Urobilinogen 0.2 < = 1.0 MG/DL Urine Leukocyte Esterase NEGATIVE NEGATIVE Urine RBC (Auto) 1+ H NEGATIVE Urine RBC 2-5 H /HPF Urine WBC 2-5 /HPF Urine Squamous Epithelial Cells 25-50 H /HPF Urine Crystals NONE /LPF Urine Bacteria LARGE H /HPF Urine Casts NONE /LPF Urine Mucus SMALL H /LPF Urine Culture Indicated NO White Blood Count 6.3 4.3-11.0 10^3/uL Red Blood Count 5.22 H 3.80-5.11 10^6/uL Hemoglobin 16.0 11.5-16.0 g/dL Hematocrit 47 35-52 % Mean Corpuscular Volume 89 80-99 fL Mean Corpuscular Hemoglobin 31 25-34 pg Mean Corpuscular Hemoglobin Concent 34 32-36 g/dL Red Cell Distribution Width 13.3 10.0-14.5 % Platelet Count 191 130-400 10^3/uL Mean Platelet Volume 11.3 9.0-12.2 fL Immature Granulocyte % (Auto) 0 % Neutrophils (%) (Auto) 59 42-75 % Lymphocytes (%) (Auto) 29 12-44 % Monocytes (%) (Auto) 8 0-12 % Eosinophils (%) (Auto) 3 0-10 % Basophils (%) (Auto) 1 0-10 % Neutrophils # (Auto) 3.7 1.8-7.8 10^3/uL Lymphocytes # (Auto) 1.8 1.0-4.0 10^3/uL Monocytes # (Auto) 0.5 0.0-1.0 10^3/uL Eosinophils # (Auto) 0.2 0.0-0.3 10^3/uL Basophils # (Auto) 0.0 0.0-0.1 10^3/uL Immature Granulocyte # (Auto) 0.0 0.0-0.1 10^3/uL Sodium Level 139 135-145 MMOL/L Potassium Level 3.0 L 3.6-5.0 MMOL/L Chloride Level 100 98-107 MMOL/L Carbon Dioxide Level 25 21-32 MMOL/L Anion Gap 14 5-14 MMOL/L Blood Urea Nitrogen 10 7-18 MG/DL Creatinine 0.67 0.60-1.30 MG/DL Estimat Glomerular Filtration Rate 98 BUN/Creatinine Ratio 15 Glucose Level 100 70-105 MG/DL Lactic Acid Level 1.47 0.50-2.00 MMOL/L Calcium Level 9.4 8.5-10.1 MG/DL Corrected Calcium 9.1 8.5-10.1 MG/DL Total Bilirubin 0.4 0.1-1.0 MG/DL Aspartate Amino Transf (AST/SGOT) 27 5-34 U/L Alanine Aminotransferase (ALT/SGPT) 24 0-55 U/L Alkaline Phosphatase 98 40-136 U/L Troponin I < 0.30 <0.30 NG/ML Total Protein 7.6 6.4-8.2 GM/DL Albumin 4.4 3.2-4.5 GM/DL My Orders Orders - ELEAZAR CASON DO Cbc With Automated Diff (12/03/21 14:41) Comprehensive Metabolic Panel (12/03/21 14:41) Urinalysis (12/03/21 14:41) Lactic Acid Analyzer (12/03/21 14:41) Troponin I Fs (12/03/21 14:41) Ekg Tracing (12/03/21 14:41) Ns Iv 1000 Ml (Sodium Chloride 0.9%) (12/03/21 14:45) Ondansetron Injection (Zofran Injectio (12/03/21 14:45) Ed Iv/Invasive Line Start (12/03/21 15:03) Ketorolac Injection (Toradol Injection) (12/03/21 15:45) Potassium Chloride (Tablet) (K Dur Table (12/03/21 16:00) Medications Given in ED Current Medications Medications Dose Ordered Sig/Anh Route Start Time Stop Time Status Last Admin Dose Admin Ketorolac Tromethamine 30 mg ONCE ONCE IVP 12/03/21 15:45 12/03/21 15:46 DC 12/03/21 15:47 30 MG Ondansetron HCl 8 mg ONCE ONCE IVP 12/03/21 14:45 12/03/21 14:47 DC 12/03/21 14:58 8 MG Vital Signs/I&O 12/03/21 14:15 Temp 36.0 Pulse 75 Resp 14 B/P (MAP) 145/78 (100) O2 Delivery Room Air Blood Pressure Mean: 100 Departure Communication (Admissions) Family Conversation Patient's abdomen soft, nonsurgical on repeat evaluation. Lab work reviewed and reassuring. Potassium replaced. Symptoms improved with treatment. Patient able to tolerate oral intake. Recommendations watchful waiting supportive care with GI follow-up as scheduled. Return precaution reviewed. Patient verbalizes understanding agreement discharge instructions prior to departure. Impression Primary Impression: Abdominal pain Additional Impression: Nausea & vomiting Disposition: 01 HOME, SELF-CARE Condition: Stable Departure-Patient Inst. Decision time for Depature: 16:08 Referrals: PHILL PEREZ APRN (PCP) Primary Care Physician [facility] (Family) Primary Care Physician Patient Instructions: Abdominal Pain, Adult ED, Nausea and Vomiting, Adult (DC) Add. Discharge Instructions: You were evaluated in the emergency department for abdominal pain nausea and vomiting. The exact cause of your symptoms has not been determined. Please take nausea medication and potassium as directed. Drink clear liquids only for the next 6 to 12 hours then gradually increase to a bland diet as tolerated. Follow-up with your GI specialist as scheduled. Return to the ED if new or worsening symptoms. All discharge instructions reviewed with patient and/or family. Voiced understanding. Scripts Potassium Chloride (Potassium Chloride) 20 Meq Tablet.er 20 MEQ PO BID, #4 TAB Prov: ELEAZAR CASON DO 12/03/21 Ondansetron (Ondansetron Odt) 4 Mg Tab.rapdis 4 MG PO Q6H, #10 TAB Prov: ELEAZAR CASON DO 12/03/21 ELEAZAR CASON DO Dec 03, 2021 15:37
[2021-12-03] MEDS ORDERED: KETOROLAC 30 MG/ML VIAL IVP ONE (15:45)
[2021-12-03 15:56] LABS: ALANINE AMINOTRANSFERASE 24 U/L (0-55); ALBUMIN 4.4 GM/DL (3.2-4.5); ALKALINE PHOSPHATASE 98 U/L (40-136); BILIRUBIN,TOTAL 0.4 MG/DL (0.1-1.0); BUN/CREATININE RATIO 15; CALCIUM 9.4 MG/DL (8.5-10.1); CARBON DIOXIDE 25 MMOL/L (21-32); CHLORIDE 100 MMOL/L (98-107); CREATININE SERUM 0.67 MG/DL (0.60-1.30); GFR ESTIMATED 98; GLUCOSE 100 MG/DL (70-105); SODIUM 139 MMOL/L (135-145); TOTAL PROTEIN 7.6 GM/DL (6.4-8.2)
[2021-12-03 15:58] LABS: BACTERIA,URINE LARGE /HPF
[2021-12-03 15:59] LABS: SQUAMOUS EPITHELIAL CELL,UR 25-50 /HPF
[2021-12-03] MEDS ORDERED: KCL 20 MEQ TAB (K-DUR) PO ONE (16:00)
[2021-12-03] MEDS ORDERED: morphine INJ 10 MG/ML 1ML (SYR OR VIAL) IVP STA (16:04)
[2021-12-03] MEDS ORDERED: POTA-51 PO (16:10)
[2021-12-03] MEDS ORDERED: ONDA4TAB11 PO (16:10)
[2021-12-03 16:33] VITALS: BP 133/75
== END 2021-12-03 16:33 | disposition home or self-care (01) ==
LOC: EDUNIT# 14:08 → ER FS 14:13
DX: R10.13 Epigastric pain (principal); R11.2 Nausea with vomiting, unspecified; F17.210 Nicotine dependence, cigarettes, uncomplicated; Z91.040 Latex allergy status
CPT/HCPCS: 36415; 80053; 81000; 83605; 84484; 85025; 93005

== ENCOUNTER → 2022-01-23 | Outpatient (CLI) | payer OTHER ==
[~2022-01-23] MED LIST changes: +ONDA4TAB11 PO; +POTA-51 PO
== END ==
LOC: CARDFS 12:08
PROVIDERS: ATTEND Internal Medicine Cardiovascular Disease
DX: I10 Essential (primary) hypertension (principal); R00.1 Bradycardia, unspecified
CPT/HCPCS: 93306

== ENCOUNTER → 2022-02-19 | Outpatient (CLI) | payer OTHER ==
[~2022-02-19] VITALS: Ht 172 cm; Wt 94.0 kg
[~2022-02-19] MED LIST changes: +CATHETER FLUSH 10 ML SYR IVP PRN
[2022-02-19 13:18] VITALS: BP 120/83
--- NOTE | 2022-02-19 16:40 | Cardiology Stress Test Report ---
Stress Test Report Date of Procedure/Referring: Date of Procedure: Feb 19, 2022 [facility] Admitting Physician Admitting Physician: Attending Physician: Alida Fountain MD Indications: HTN Baseline Heart Rate: 64 Baseline Blood Pressure: Blood Pressure Systolic: 120 Blood Pressure Diastolic: 83 Vital Signs Date Time Temp Pulse Resp B/P (MAP) Pulse Ox O2 Delivery O2 Flow Rate FiO2 02/19/22 13:18 64 120/83 (95) 96 Baseline Vital Signs Vital Signs Date Time Temp Pulse Resp B/P (MAP) Pulse Ox O2 Delivery O2 Flow Rate FiO2 02/19/22 13:18 64 120/83 (95) 96 Baseline EKG: Baseline EKG: NSR Summary: After explaining the procedure and details to the patient, she signed the consent and was brought to the stress nuclear laboratory. Patient exercised on standard Jared protocol, EKG, heart rate and blood pressure were monitored continuously, resting and stress doses of radio tracer were injected, imaging was acquired and reviewed in the short axis, horizontal long axis and vertical long axis views Patient was able to exercise for a total of 4 minutes on Jared protocol, METs 5.7 Maximum heart rate 143 Maximum blood pressure 212/75 Stress EKG, Minimal nondiagnostic changes Recovery EKG, Return to baseline TID: 1.11 SSS: 9 SDS: 8 EF: 73 Conclusion: 1. Good exercise tolerance for a total of 4 minutes on standard Jared protocol, 5.7 METS achieving 91% of maximum expected heart rate 2. Hypertensive response to exercise return to baseline during recovery 3. Nondiagnostic EKG changes with exercise return to baseline during recovery 4. Breast attenuation with reversible ischemia involving the mid to apical anterior wall and anterior lateral wall 5. Normal left ventricular size, ejection fraction 73% Copy Copies To 1: [facility] ALIDA FOUNTAIN MD Feb 19, 2022 16:40
== END ==
LOC: CARD 02-05 07:46
PROVIDERS: ATTEND Internal Medicine Cardiovascular Disease
DX: I10 Essential (primary) hypertension (principal)
CPT/HCPCS: 78452; 93017

== ENCOUNTER 2022-03-19 07:42 | Day surgery (SDC) | payer OTHER ==
[~2022-03-19] VITALS: Ht 172.7 cm; Wt 84.7 kg
[2022-03-19] VITALS (8 sets, daily range): BP systolic 100–147; BP diastolic 55–95
[~2022-03-19 07:42] MED LIST changes: -CATHETER FLUSH 10 ML SYR IVP PRN
[2022-03-19] MEDS ORDERED: NS IV 1000 ML 1,000 ML IV SCH ×2 (07:45→10:00)
[2022-03-19] MEDS ORDERED: LIDOCAINE 1% INJ 30 ML (XYLOCAINE) VIAL ONE (07:49)
[2022-03-19] MEDS ORDERED: HEParin (CATH LAB) 2,000 ML IV ONE (07:49)
[2022-03-19] MEDS ORDERED: NS IV 1000 ML 1,000 ML ONE (07:49)
--- NOTE | 2022-03-19 08:18 | Diagnostic Imaging Report ---
INDICATION: Coronary artery disease Single AP view of the chest is obtained with comparison made to study of 11/28/2020. FINDINGS: Heart size and pulmonary vascularity are within normal limits, and the lungs are clear, bilaterally. IMPRESSION: Unremarkable chest. Dictated by: Dictated on workstation # [id number]
[2022-03-19 08:21] LABS: HEMATOCRIT 44 % (35-52); MEAN CORPUSCULAR HEMOGLOBIN 31 pg (25-34); MEAN CORPUSCULAR HGB CONC 34 g/dL (32-36); MEAN CORPUSCULAR VOLUME 92 fL (80-99); MEAN PLATELET VOLUME 11.1 fL (9.0-12.2); PLATELET COUNT 208 10^3/uL (130-400); WHITE BLOOD COUNT 8.3 10^3/uL (4.3-11.0)
[2022-03-19 08:32] LABS: PROTHROMBIN TIME PATIENT 13.7 SEC (12.2-14.7)
[2022-03-19] MEDS ORDERED: LISI1TAB44 PO (08:43)
[2022-03-19] MEDS ORDERED: TRZ50T PO (08:44)
[2022-03-19 08:56] LABS: BILIRUBIN,TOTAL 0.5 MG/DL (0.1-1.0); CALCIUM 9.2 MG/DL (8.5-10.1); CREATININE SERUM 0.77 MG/DL (0.60-1.30); POTASSIUM 3.6 MMOL/L (3.6-5.0); TOTAL PROTEIN 7.1 GM/DL (6.4-8.2)
--- NOTE | 2022-03-19 08:56 | Cardiac Procedure Note-CS/ASA ---
Pre-Procedure Note Pre-Op Procedure Note Date of Available H&P: Feb 24, 2022 Date H&P Reviewed: Mar 19, 2022 Time H&P Reviewed: 08:55 History & Physical: H&P Reviewed, Patient Examed, No changes noted Pre-Operative Diagnosis: Coronary artery disease Conscious Sedation Pre-Proced Time 08:55 ASA Score 3 For ASA 3 and 4: Consider anesthesia and medical clearance. Also, for patients with a history of failed moderate sedation consider anesthesia. Airway Lungs Heart ASA score ASA 1: a normal healthy patient ASA 2: a patient with a mild systemic disease (mid diabetes, controlled hypertension, obesity ASA 3: a patient with a severe systemic disease that limits activity (angina, COPD, prior Myocardial infarction) ASA 4: a patient with an incapacitating disease that is a constant threat to life (CHF, renal failure) ASA 5: a moribund patient not expected to survive 24 hrs. (ruptured aneurysm) ASA 6: a declared brain- patient whose organs are being harvested. For emergent operations, add the letter E after the classification Mallampati Classification Grade 3 Sedation Plan Analgesia, Amnesia, Plan communicated to team members, Discussed options with patient/fam, Discussed risks with patient/fam The patient is an appropriate candidate to undergo the planned procedure, sedation, and anesthesia. The patient immediately re-assessed prior to indication. ALIDA RAMOS MD Mar 19, 2022 08:56
[2022-03-19] MEDS ORDERED: NITRO DRIP 25000 MCG/D5W 250 ML IV ONE (09:15)
[2022-03-19] MEDS ORDERED: MIDAZOLAM 5 MG/5 ML (VERSED) VIAL ONE (09:15)
[2022-03-19] MEDS ORDERED: fentaNYL INJ 100 MCG/2 ML AMP ONE (09:15)
[2022-03-19] MEDS ORDERED: HEParin 1000 UNIT/ML (10ML VIAL) FOR BOLUS ONE (09:15)
[2022-03-19] MEDS ORDERED: VERAPAMIL 5 MG/2 ML (CALAN) VIAL IV ONE (09:15)
--- NOTE | 2022-03-19 09:51 | Discharge Inst-Post CATH ---
Discharge Inst-CATH/EP Problems Reviewed?: Yes Post Cardiac Cath/EP D/C Inst Follow Up/Plan Appointment with Dr. Fountain's office in 2 to 4 weeks <b>CARDIAC CATH/EP PROCEDURE DISCHARGE INSTRUCTIONS</b> ACTIVITY * Go Home directly and rest. * Limit activity of the leg (or wrist if it was used) for 7 days including aer obics, swimming, jogging, bicycling, etc. * Restrict stair-climbing for 7 days if possible, if not, climb up with your non-cath leg, then bring together on the same step. * Avoid lifting, pushing, pulling or excessive movement of the affected extremi ty for 7 days. * Customary sexual activity may be resumed after 2 days-use caution not to use a position that strains or causes pain to the affected extremity. * No driving for 24 hours. * NO SMOKING. * Avoid straining for bowel movements for 7 days. * Gentle walking on level ground is allowed. * Returning to work will depend on the type of procedure and the results. Your doctor will discuss this with you. CALL YOUR DOCTOR FOR ANY OF THE FOLLOWING: *If bleeding from the puncture site occurs- Apply gentle pressure to site with clean cloth and call your doctor or EMS. * If a knot or lump forms under the skin, increases in size, or causes pain. * If bruising appears to be worsening or moving further down your leg instead of disappearing. * Temperature above 101 F. CARE OF YOUR GROIN INCISION; * Bruising or purple discoloration of the skin near the puncture site is common. * You may shower only, no bathtub bathing for 5 days. Be careful to avoid slipping as your leg may feel stiff. * If a closure device was used on your femoral artery, please see the attached guide regarding care of the device and your leg. * Leave dressing on FOR 24 hours. CARE OF YOUR WRIST INCISION; * Bruising or purple discoloration of the skin near the puncture site is common. * You may shower. * DO NOT submerge wrist. * Leave dressing on FOR 24 hours. ALIDA FOUNTAIN MD Mar 19, 2022 09:51
--- NOTE | 2022-03-19 09:58 | Cardiac Cath Report ---
Cardiac Cath Report Physician (s)/Insurance Legal Assistant (s) Physician ALIDA RAMOS MD Pre-Procedure Diagnosis Pre-Procedure Diagnosis: Coronary artery disease Post-Procedure Note Procedure Start Date: Mar 19, 2022 Name of Procedure: Left heart catheterization Findings/Procedure Note PROCEDURE NOTE: 62-year-old lady with history of coronary artery disease stent to the LAD, had an abnormal stress test with anterior wall ischemia scheduled for cardiac catheterization possible PTCA. After explaining the procedure to the patient, all pros and cons were explained, all questions were answered. The patient signed the consent and then she was placed on the cardiac catheterization laboratory. Groin was prepped SL fashion local anesthesia was used. Sheath placed in the right radial artery, [place] catheter was advanced to the left ventricular cavity, pressure was measured, pullback LV to aorta was done, engage the right and left coronary system, multiple views were obtained. At the end of the procedure the sheath was removed. Vascular band was used FINDINGS: Hemodynamics LV 142/10, end-diastolic pressure of 10 Aorta 130/72 mean of 92 ANATOMY: Left Main is free of obstructive disease Left Anterior Descending has a patent stent in the proximal LAD known to have 2.75 stent, beyond the stent there is 40 to 50% stenosis nonobstructive disease Left Circumflex is moderate in size with mild disease nonobstructive disease Right Coronary Artery is dominant artery with mild disease nonobstructive disease LV Gram was not done, pressure was measured CONCLUSION: 1. Patent stent in the proximal LAD with 40 to 50% stenosis at the mid LAD nonobstructive disease 2. Otherwise mild to moderate coronary artery disease nonobstructive disease 3. Normal left ventricular end-diastolic pressure DISCUSSION AND RECOMMENDATION: Abnormal stress test is probably due to extracardiac attenuation, continue with medical therapy. No intervention is required Anesthesia Type: Conscious Sedation Estimated blood loss (mL): 10 ml Contrast Amount: 33 ml Total Radiation Dose: 204 mGy Post-Procedure Diagnosis Post-operative diagnosis: Chest pain Coronary artery disease Hypertension Hyperlipidemia. ALIDA RAMOS MD Mar 19, 2022 09:58
== END 2022-03-19 12:33 | disposition home or self-care (01) ==
LOC: CATH 07:42 → ICU 10:01 → CATH 12:33
PROVIDERS: ATTEND Internal Medicine Cardiovascular Disease
DX: I25.10 Atherosclerotic heart disease of native coronary artery without angina pectoris (principal); I10 Essential (primary) hypertension; Z79.899 Other long term (current) drug therapy; Z79.82 Long term (current) use of aspirin; F17.210 Nicotine dependence, cigarettes, uncomplicated; Z86.16 Personal history of COVID-19; I65.23 Occlusion and stenosis of bilateral carotid arteries; E78.2 Mixed hyperlipidemia
CPT/HCPCS: 36415; 71045; 80053; 80061; 85027; 85610; 85730; 87081; 93005; 93458

== ENCOUNTER → 2022-04-17 | Outpatient (CLI) | payer OTHER ==
[~2022-04-17] MED LIST changes: +LISI1TAB44 PO; +TRZ50T PO
--- NOTE | 2022-04-17 14:27 | Diagnostic Imaging Report ---
INDICATION: Right shoulder pain, no known injuries. EXAMINATION: Right shoulder 04/17/2022. FINDINGS: Two views of the shoulder demonstrate narrowing, spurring and sclerosis at the acromioclavicular joint. Minimal narrowing at the glenohumeral joint space is noted. No fractures or dislocations. Right lung clear. IMPRESSION: 1. Chronic findings. No acute osseous abnormality. Dictated by: Dictated on workstation # [id number]
== END ==
LOC: RAD FS 12:49
PROVIDERS: ATTEND Nurse Practitioner Family
DX: M25.511 Pain in right shoulder (principal)
CPT/HCPCS: 73030

== ENCOUNTER → 2023-04-06 | Outpatient (CLI) | payer MEDICARE, OTHER ==
[~2023-04-06] MED LIST changes: +ACET-2267 PO; +AMOX1TAB12 PO; +COLLAGEN PO; +EVOL140P3 SQ; -EZET10TA17 PO; +EZET10TA83 PO; +HOLD METFORMIN - RECEIVED CONTRAST 20 ML VIAL IV SCH; +IOHEXOL 350 MG/ML 100 ML (OMNIPAQUE 350) VIAL IV ONE; -MECL-149 PO; +MECL-291 PO; +MELA1TAB15 PO; +MELO15TA39 PO; +METR-145 PO; +NITR0.4T42 SL; +NS 100 ML (IVPB) BAG IV ONE; +OMEG100032 PO; +PANT40TA52 PO; +POLY17PO6 PO; +POTA-330 PO; -POTA-51 PO; +SULF-221 PO; +TRAZ-227 PO; +TRM50T PO
--- NOTE | 2023-04-06 12:16 | Diagnostic Imaging Report ---
PROCEDURE: CT abdomen with and without contrast. TECHNIQUE: Multiple contiguous axial CT images of the abdomen were obtained prior to and after intravenous administration of iodinated contrast. Auto Exposure Controls were utilized during the CT exam to meet ALARA standards for radiation dose reduction. INDICATION: Subchondral pain. COMPARISON: None FINDINGS: Included portions of the lung bases are clear. CT ABDOMEN: 2 large right-sided renal cysts are identified. The more inferior cyst has a noncomplex, benign appearance. The larger cyst, which extends exophytically from the superior pole has a more complex appearance. It measures 6.1 x 6.2 x 8.9 cm. Multiple internal septations are noted and show areas of slightly prominent thickening. Some of these areas of relative thickening show calcifications. No discrete soft tissue mass or nodule is seen. Small benign-appearing left renal cyst is also noted. Kidneys have an otherwise normal CT appearance. No renal calculi are seen on either side. No solid masses are identified. There is no hydroureteronephrosis or other evidence of obstruction. The adrenal glands, spleen, and pancreas have a normal CT appearance. Small benign-appearing cyst is noted within the far lateral margins of segment 2 of the liver. Liver has an otherwise normal CT appearance as well. Included small bowel loops are nondilated. Cecum and appendix are not included in the [id number]. There is no loculated fluid collection, free fluid or free air. No abnormal mesenteric or retroperitoneal adenopathy is seen. There is moderate diffuse calcified aortic arch atherosclerosis. Osseous structures show no acute abnormalities. IMPRESSION: 1. Right-sided renal cysts as above. 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 6 month followup is advised. Dictated by: Dictated on workstation # [id number]
== END ==
LOC: RAD 08:23
PROVIDERS: ATTEND Registered Nurse Emergency
DX: N28.1 Cyst of kidney, acquired (principal)
CPT/HCPCS: 74170

== ENCOUNTER 2023-04-09 05:27 | Outpatient (CLI) | payer MEDICARE, OTHER ==
[~2023-04-09] VITALS: Ht 172.7 cm; Wt 86.4 kg
[~2023-04-09 05:27] MED LIST changes: -ACET-2267 PO; -AMOX1TAB12 PO; -COLLAGEN PO; -EVOL140P3 SQ; -HOLD METFORMIN - RECEIVED CONTRAST 20 ML VIAL IV SCH; -IOHEXOL 350 MG/ML 100 ML (OMNIPAQUE 350) VIAL IV ONE; -MELA1TAB15 PO; -MELO15TA39 PO; -METR-145 PO; -NITR0.4T42 SL; -NS 100 ML (IVPB) BAG IV ONE; -OMEG100032 PO; -PANT40TA52 PO; -POLY17PO6 PO; -SULF-221 PO; -TRAZ-227 PO; -TRM50T PO
[2023-04-09] MEDS ORDERED: TRAZ-227 PO (17:15)
[2023-04-09] MEDS ORDERED: ACET-2267 PO (17:15)
[2023-04-09] MEDS ORDERED: COLLAGEN PO (17:15)
[2023-04-09] MEDS ORDERED: SULF-221 PO (17:15)
[2023-04-09] MEDS ORDERED: PANT40TA52 PO (17:15)
[2023-04-09] MEDS ORDERED: NITR0.4T42 SL (17:15)
[2023-04-09] MEDS ORDERED: TRM50T PO (17:15)
[2023-04-09] MEDS ORDERED: AMOX1TAB12 PO (17:15)
[2023-04-09] MEDS ORDERED: EVOL140P3 SQ (17:15)
[2023-04-09] MEDS ORDERED: OMEG100032 PO (17:15)
[2023-04-09] MEDS ORDERED: METR-145 PO (17:15)
[2023-04-09] MEDS ORDERED: MELA1TAB15 PO (17:15)
[2023-04-09] MEDS ORDERED: POLY17PO6 PO (17:15)
[2023-04-09] MEDS ORDERED: MELO15TA39 PO (17:15)
== END 2023-04-09 17:20 | disposition home or self-care (01) ==
LOC: PREOP 05:27
PROVIDERS: ATTEND Surgery
DX: Z01.818 Encounter for other preprocedural examination (principal)

== ENCOUNTER 2023-04-16 12:43 | Day surgery (SDC) | payer MEDICARE, OTHER ==
[~2023-04-16] VITALS: Ht 172.7 cm; Wt 86.4 kg
[2023-04-16] VITALS (12 sets, daily range): BP systolic 120–158; BP diastolic 55–97
[~2023-04-16 12:43] MED LIST changes: +ACET-2267 PO; +AMOX1TAB12 PO; +COLLAGEN PO; +EVOL140P3 SQ; +MELA1TAB15 PO; +MELO15TA39 PO; +METR-145 PO; +NITR0.4T42 SL; +OMEG100032 PO; +PANT40TA52 PO; +POLY17PO6 PO; +SULF-221 PO; +TRAZ-227 PO; +TRM50T PO
[2023-04-16] MEDS ORDERED: ceFAZolin INJECTION 2,000 MG in NS (IVPB) 50 ML 50 ML IV ONE (13:00)
[2023-04-16] MEDS ORDERED: LIDOCAINE 2% w/EPI 1:100,000 20 ML VIAL ONE (13:07)
[2023-04-16] MEDS: LACTATED RINGERS 1,000 ML 1,000 ML IV PRN ×2 (13:25→17:28)
--- NOTE | 2023-04-16 14:06 | Progress Note-Pre Operative ---
Pre-Operative Progress Note Date of Available H&P: Apr 16, 2023 Date H&P Reviewed: Apr 16, 2023 Time H&P Reviewed: 14:00 History & Physical: No changes noted Pre-Operative Diagnosis: biliary dyskinesia KILEY BYRD MD Apr 16, 2023 14:06
[2023-04-16] MEDS ORDERED: HYDR-3817 PO (14:08)
--- NOTE | 2023-04-16 14:09 | Discharge Inst-Surgical ---
D/C Lap Instructions-ROCHELLE New, Converted, or Re-Newed RX: RX on Chart Follow Up Appt in 2 weeks Activity as tolerated No driving for 24 hours No driving while on pain medications Incentive Spirometry use every 2 hours while awake Regular Diet Symptoms to Report: Fever over 101 degree F, Nausea/Vomiting Infection Signs and Symptoms to report: Increased redness, Foul odor of wound, Increased drainage Bathing instructions: May shower Operative Area Clean/Dry; Keep incision clean/dry If any problems/questions: Contact your physician or go to Emergency Room KILEY BYRD MD Apr 16, 2023 14:09
[2023-04-16] MEDS ORDERED: ACETAMINOPHEN 325 MG TABLET PO PRN (14:15)
[2023-04-16] MEDS ORDERED: ONDANSETRON INJECTION 4 MG/2 ML (SDV) IVP PRN ×2 (14:15→17:15)
[2023-04-16] MEDS ORDERED: morphine INJ 10 MG/ML 1ML (SYR OR VIAL) IVP PRN ×2 (14:15)
[2023-04-16] MEDS ORDERED: oxyCODONE/ACETAMINOPHEN 5/325MG TABLET PO PRN (14:15)
[2023-04-16] MEDS ORDERED: ROCURONIUM 50 MG/5 ML VIAL IV ONE (15:47)
[2023-04-16] MEDS ORDERED: ONDANSETRON INJECTION 4 MG/2 ML (SDV) ONE (15:47)
[2023-04-16] MEDS ORDERED: dexAMETHasone INJ 10 MG/ML 1 ML VIAL ONE (15:47)
[2023-04-16] MEDS ORDERED: fentaNYL INJECTION 100 MCG/2 ML VIAL ONE (15:47)
[2023-04-16] MEDS ORDERED: LIDOCAINE PF 2% 5 ML VIAL ONE (15:47)
[2023-04-16] MEDS ORDERED: proPOfol INJECTION 200 MG/20 ML VIAL IV ONE (15:47)
[2023-04-16] MEDS ORDERED: MIDAZOLAM INJ 2 MG/2 ML VIAL ONE (15:48)
[2023-04-16] MEDS ORDERED: GLYCOPYRROLATE INJ 0.2 MG/ML 2 ML VIAL ONE (16:53)
[2023-04-16] MEDS ORDERED: NEOSTIGMINE 1 MG/1ML 10 ML VIAL ONE (16:53)
--- NOTE | 2023-04-16 16:56 | Progress Note-Post Operative ---
Post-Operative Progess Note Surgeon (s)/Sh[place] Sinker (s) Surgeon KILEY BYRD MD Shaft Sinker: haydee serrano [employer] Pre-Operative Diagnosis biliary dyskinesia Post-Operative Diagnosis chronic calculous cholecystitis. Procedure & Operative Findings Date of Procedure 04/16/23 Procedure Performed/Findings laparoscopic cholecystectomy Anesthesia Type get Estimated Blood Loss Estimated blood loss (mL): minimal Specimens/Packing Specimens Removed gallbladder KILEY BYRD MD Apr 16, 2023 16:56
[2023-04-16] MEDS ORDERED: SEVOFLURANE (ULTANE) 15 ML INHAL SOLN ONE (17:02)
[2023-04-16] MEDS ORDERED: fentaNYL INJECTION 100 MCG/2 ML VIAL IVP ONE (17:15)
[2023-04-16] MEDS ORDERED: HYDROmorphone INJECTION 2 MG/ML VIAL IV ONE (17:15)
[2023-04-16] MEDS ORDERED: PROMETHAZINE INJ 25 MG/ML VIAL IVP ONE (17:15)
--- NOTE | 2023-04-16 18:24 | Anesthesia-General Post-Op ---
General Patient Condition Mental Status/LOC: Same as Preop Cardiovascular: Satisfactory Nausea/Vomiting: Absent Respiratory: Satisfactory Pain: Controlled Complications: Absent Post Op Complications Complications None Follow Up Care/Instructions Patient Instructions None needed. Anesthesia/Patient Condition Patient Condition Patient is doing well, no complaints, stable vital signs, no apparent adverse anesthesia problems. No complications reported per nursing. MAEVE OBRIEN CRNA Apr 16, 2023 18:24
--- NOTE | 2023-04-17 01:15 | OPERATIVE REPORT ---
DATE OF SERVICE: 04/16/2023 ATTENDING PRIMARY CARE PHYSICIAN: Zara Landaverde MD PREOPERATIVE DIAGNOSIS: Symptomatic biliary dyskinesia. POSTOPERATIVE DIAGNOSIS: Chronic calculous cholecystitis. PROCEDURE: Laparoscopic cholecystectomy. SURGEON: Kiley Byrd MD INVESTMENT UNDERWRITER: Eddi Wharton APRN ANESTHESIA: General endotracheal. ESTIMATED BLOOD LOSS: Minimal. FINDINGS: Mild gallbladder wall inflammation as well as multiple small gallstones. DISPOSITION: The patient tolerated the procedure well. INDICATIONS: The patient is a 63-year-old female with a several year history of abdominal bloating, distention as well as a right upper abdominal quadrant pain with radiation towards the back on an intermittent basis. She states that in the beginning, her symptoms were relatively mild, however, over time, she has had more frequent episodes as well as more severe in nature. She also reports developing associated nausea and vomiting at times as well. She underwent an ultrasound, which did not show any gallstones and she underwent a HIDA scan, which showed a normal ejection fraction, however, she did have significant reproduction of symptoms with the abdominal pain, distention as well as nausea during the administration of the Kinevac analogue consistent with biliary dyskinesia. Postoperatively, the patient was found to have a chronic calculous cholecystitis. DESCRIPTION OF PROCEDURE: The patient was brought to the operating room, laid supine on the table. After adequate IV pain and sedative medications and general endotracheal intubation, the abdomen was prepped and draped in standard surgical fashion. 0.5% Marcaine with epinephrine was used to anesthetize overlying skin in the left upper abdominal quadrant and a transverse skin incision made using a #15 blade. An 0 silk suture was applied to the medial aspect of the incision for retraction and Veress needle inserted with a low opening pressure of 0 mmHg and the abdomen was then insufflated to 15 mmHg pressure. The Veress needle removed and a 5 mm trocar placed, followed by a 5 mm 45-degree angle laparoscope visualized the peritoneal cavity. A 4-quadrant abdominal exploration was performed. There was a distended gallbladder. There was mild gallbladder wall thickening. Under direct visualization, we then proceeded to place a supraumbilical 10 mm port after the skin and peritoneal lining were anesthetized using 0.5% Marcaine with epinephrine and a transverse skin incision made using a #15 blade. In a similar manner, a right upper abdominal quadrant 5 mm port was placed. The patient was then placed in reverse Trendelenburg position as well as plane right side up, left side down. The fundus of the gallbladder was then retracted anteriorly and superiorly. The hepatoduodenal ligament was then dissected bluntly as well as using cautery on the hook instrument as well as a [place] dissector. The entire critical view of safety was identified including the triangle of Calot as well as the cystic duct and artery as the only 2 structures going into the gallbladder as well as the cystic plate behind the proximal gallbladder. A timeout was then taken and the cystic duct and artery were then clipped proximally and distally and cut with EndoShears. The gallbladder was then dissected off of the liver bed using cautery on the hook instrument with visualization of good hemostasis as well as no leaking ducts of Luschka. The gallbladder was removed through the 10 mm port site using an EndoCatch bag. The 10 mm port site fascia and peritoneum were then closed under direct visualization using a Fabiano-Laisha device and 0 Vicryl suture. The abdomen was then desufflated and the remaining ports were removed. All skin incisions were closed using 4-0 Monocryl running subcuticular sutures. The patient tolerated the procedure well. We will start IV normal pain medication as well as a clear liquid diet. Once she is tolerating clears, has good pain control with oral pain medications, ambulating well, we will discharge her home where she will be instructed to do no heavy lifting or exertion for the next 2 weeks. Job ID: [id number] DocumentID: [id number] Dictated Date: 04/16/2023 17:03:31 Lime Slaker Date: 04/17/2023 01:13:00 Dictated By: KILEY BYRD MD
== END 2023-04-16 19:40 | disposition home or self-care (01) ==
LOC: SDC 12:43
PROVIDERS: ATTEND Surgery
DX: K80.10 Calculus of gallbladder with chronic cholecystitis without obstruction (principal); K82.8 Other specified diseases of gallbladder; F17.210 Nicotine dependence, cigarettes, uncomplicated
CPT/HCPCS: 87081; 93005